=== PATIENT | male | born 1990 | race Hispanic/Latino ===

== ENCOUNTER 2018-09-21 09:56 | Day surgery (SDC) | payer BC ==
[2018-09-20 10:41] VITALS: BMI 27.6
--- NOTE | 2018-09-21 13:18 | OP ---
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 PROCEDURES PERFORMED: Esophagogastroduodenoscopy with biopsies. INDICATION: H. pylori gastritis, refractory to multiple courses of prior treatment. The patient has had triple or quadruple therapy x4, with failure to eradicate H. pylori infection. EGD is performed today for the purpose of obtaining repeat gastric biopsies to send for H. pylori culture and sensitivities. MEDICATIONS: See Anesthesia record. FINDINGS: After discussion of the risks, benefits, and alternatives of the procedure, informed consent was obtained and witnessed. Pre-endoscopic cardiopulmonary examination was satisfactory. Time-out was performed before sedation was achieved. Sedation was achieved with Anesthesia assistance in the endoscopy unit. A Pentax adult upper endoscope was placed into the oropharynx and passed through the cricopharyngeus under direct visualization. The esophageal mucosa appeared normal throughout with a normal-appearing Z-line. The endoscope was advanced into the stomach. Forward and retroflexed views of the entire gastric mucosa were obtained. In the gastric fundus, there is some persistent mild patchy erythema, similar to what was seen on prior examinations. The gastric body and antrum appeared normal. The endoscope was passed through the pylorus and into the first and second portion of the duodenum, which appeared normal. At this point, biopsies were obtained from the gastric antrum, body, and fundus. These specimens were placed into a sterile tube with saline, to be sent for culture and sensitivities. The upper endoscope was completely withdrawn and the patient allowed to recover. The patient tolerated the procedure well. There were no immediate postprocedure complications. IMPRESSION: Mild Helicobacter pylori gastritis with patchy erythema in the gastric fundus, biopsies obtained for Helicobacter pylori culture and sensitivities. RECOMMENDATION: 1. Follow up culture and sensitivity results, and then discuss with Dr. Su. 2. Regular diet. Job ID: [id number]
[2018-09-21] MEDS ORDERED: PROPOFOL 200 MG/20 ML VIAL ONE (14:00)
== END 2018-09-21 13:25 | disposition home or self-care (01) ==
LOC: SDC 09:56
PROVIDERS: ATTEND Internal Medicine
PROC: 0DB68ZX Excision of Stomach, Via Natural or Artificial Opening Endoscopic, Diagnostic (ICD-10-PCS; principal; 2018-09-21)
DX: K29.50 Unspecified chronic gastritis without bleeding (principal); B96.81 Helicobacter pylori [H. pylori] as the cause of diseases classified elsewhere
CPT/HCPCS: J2704